=== PATIENT | male | born 1970 | race Caucasian/White ===

== ENCOUNTER 2024-06-28 15:11 | Observation (INO) | payer BC, OTHER ==
[2024-06-28 17:55] LABS: #Basophils 0.05 10x3/uL (0.0-0.2); %Basophils 0.4 % (0.0-1.0); %Eosinophils 1.3 % (0.0-10.0); %Monocytes 7.8 % (0.0-10.0); %Neutrophils 53.5 % (42.0-75.0); Hematocrit 46.2 % (42.0-52.0); Hemoglobin 15.4 g/dL (14.0-18.0); Mean Corpuscular HGB CONC 33.3 g/dL (32.0-36.0); Mean Corpuscular Hemoglobin 30.6 pg (27.0-31.0); Mean Corpuscular Volume 91.7 fL (78.0-98.0); Mean Platelet Volume 10.4 fL (7.4-10.4); Platelet Count 188 10x3/uL (130-400); RBC Distribution Width 13.6 % (11.5-14.5); Red Blood Cell (RBC) Count 5.04 mill/uL (4.70-6.10)
[2024-06-28 18:19] LABS: ALT (SGPT) 55 U/L (8-55); AST (SGOT) 38 U/L (5-34); Albumin 3.3 g/dL (3.5-5.0); Alkaline Phosphatase 56 U/L (40-110); Anion Gap 14 mmol/L (10-20); BUN (Urea Nitrogen) 18 mg/dL (8.4-25.7); Bilirubin, Total 0.5 mg/dL (0.2-1.2); Calc. Creatinine Clearance 0 mL/min (70-130); Calcium 8.7 mg/dL (7.8-10.44); Carbon Dioxide 23 mmol/L (22-29); Chloride 105 mmol/L (98-107); Estimated GFR 92; Globulin 3.3 g/dL (2.4-3.5); Glucose 105 mg/dL (70-105); Magnesium 2.1 mg/dL (1.6-2.6); Potassium 4.3 mmol/L (3.5-5.1); Protein, Total 6.6 g/dL (6.0-8.3); Sodium 138 mmol/L (136-145)
[2024-06-28 18:23] LABS: Troponin I 0.012 ng/mL (< 0.028)
[2024-06-28] MEDS ORDERED: Aspirin Chewable 81 MG TAB ONE (18:32)
[2024-06-28] MEDS ORDERED: Acetaminophen 650 MG Suppository PR PRN (18:54)
[2024-06-28] MEDS ORDERED: Acetaminophen 325 MG TAB PO PRN (18:54)
[2024-06-28] MEDS ORDERED: Ondansetron ODT 4 MG TAB PO PRN (18:54)
[2024-06-28] MEDS ORDERED: Nitroglycerin 0.4 MG TAB (25 Tab Bottle) SL PRN (18:56)
[2024-06-28 20:40] LABS: Troponin I Less than 0.010 ng/mL (< 0.028)
[2024-06-28 22:21] VITALS: BMI 61.4
[2024-06-29 00:34] LABS: Troponin I Less than 0.010 ng/mL (< 0.028)
[2024-06-29] MEDS: Atorvastatin Calcium 40 MG TAB PO SCH (01:19)
[2024-06-29 08:14] LABS: #Basophils 0.05 10x3/uL (0.0-0.2); %Basophils 0.4 % (0.0-1.0); %Eosinophils 1.3 % (0.0-10.0); %Lymphocytes 42.8 % (21.0-51.0); %Monocytes 9.6 % (0.0-10.0); %Neutrophils 44.3 % (42.0-75.0); Hematocrit 47.7 % (42.0-52.0); Hemoglobin 15.3 g/dL (14.0-18.0); Mean Corpuscular HGB CONC 32.1 g/dL (32.0-36.0); Mean Corpuscular Hemoglobin 30.2 pg (27.0-31.0); Mean Corpuscular Volume 94.1 fL (78.0-98.0); Mean Platelet Volume 10.6 fL (7.4-10.4); Platelet Count 201 10x3/uL (130-400); RBC Distribution Width 13.8 % (11.5-14.5); Red Blood Cell (RBC) Count 5.07 mill/uL (4.70-6.10)
[2024-06-29 08:30] LABS: Anion Gap 13 mmol/L (10-20); BUN (Urea Nitrogen) 21 mg/dL (8.4-25.7); Calc. Creatinine Clearance 283 mL/min (70-130); Calcium 8.3 mg/dL (7.8-10.44); Carbon Dioxide 26 mmol/L (22-29); Cardiac Risk 4.3 (Less than 4.5); Chloride 104 mmol/L (98-107); Cholesterol 186 mg/dl (< 200 Desired); Estimated GFR 105; Glucose 84 mg/dL (70-105); HDL Cholesterol 43 mg/dL (>60 Neg Risk); LDL Cholesterol, Calculated 105 mg/dL; Potassium 3.9 mmol/L (3.5-5.1); Sodium 139 mmol/L (136-145); Triglycerides 192 mg/dL (Less than 150)
[2024-06-29] MEDS: Aspirin Chewable 81 MG TAB PO SCH (09:03)
[2024-06-29] MEDS: Enoxaparin 40 MG (0.4 mL) SYRINGE SC SCH (09:08)
[2024-06-29] MEDS: Amlodipine 5 MG TAB PO SCH (10:16)
[2024-06-29 15:17] VITALS: BP 153/67; TEMP 97.8
[2024-06-30] MEDS ORDERED: Amlodipine 5 MG TAB PO SCH (09:00)
== END 2024-06-29 17:28 | disposition home or self-care (01) ==
LOC: ERS 15:11 → OBS 18:59
PROVIDERS: ADMIT Family Medicine; ATTEND Family Medicine
PROC: B24BZZZ Ultrasonography of Heart with Aorta (ICD-10-PCS; principal; 2024-06-29)
DX: R07.89 Other chest pain (principal); R01.1 Cardiac murmur, unspecified; I10 Essential (primary) hypertension; D72.829 Elevated white blood cell count, unspecified; E78.5 Hyperlipidemia, unspecified; E66.01 Morbid (severe) obesity due to excess calories; Z68.44 Body mass index [BMI] 60.0-69.9, adult
CPT/HCPCS: 36415; 71045; 80048; 80053; 80061; 83735; 83880; 84484; 85025; 93005; 93010; 93306; 94760; G0378; J1650